=== PATIENT | female | born 2000 | race Two or more races ===

== ENCOUNTER 2024-08-13 18:02 | Emergency (ER) | payer OTHER ==
[~2024-08-13] VITALS: Ht 167.6 cm; Wt 113.4 kg
[2024-08-13 18:15] VITALS: BP 116/75; O2SAT 99
== END 2024-08-13 20:48 | disposition home or self-care (01) ==
LOC: ER 18:04
DX: S83.8X2A Sprain of other specified parts of left knee, initial encounter (principal); M25.462 Effusion, left knee